=== PATIENT | female | born 1955 | race Hispanic/Latino ===

== ENCOUNTER 2018-09-17 10:20 | Outpatient (CLI) | payer MEDICARE, OTHER | END 2018-09-17 10:21 | disposition home or self-care (01) | LOC: RAD 10:21 ==

== ENCOUNTER 2018-09-30 10:07 | Outpatient (CLI) | payer MEDICARE, OTHER | END 2018-09-30 10:08 | disposition home or self-care (01) | LOC: RAD 10:07 ==